=== PATIENT | male | born 1960 | race Hispanic/Latino ===

== ENCOUNTER 2025-08-02 08:37 | Day surgery (SDC) | payer OTHER ==
[2025-08-01 16:49] VITALS: BMI 24.0
[~2025-08-02 08:37] MED LIST: EPINEPHrine 0.3 MG in Ophthalmic Irrigation Solution 500 ML IRR SCH
[2025-08-02] MEDS ORDERED: Cyclopentolate 1% Opth Drop 2 ML BOT ONE (08:48)
[2025-08-02] MEDS ORDERED: Lidocaine 1% PF 5 ML VIAL ONE ×2 (10:04→11:20)
[2025-08-02] MEDS ORDERED: PROPOFOL 20 ML ONE (10:04)
[2025-08-02] MEDS ORDERED: Ondansetron PF 4 MG/2 ML Vial ONE (11:16)
[2025-08-02] MEDS ORDERED: GLYCOPYRROLATE/PF 0.2 MG/ML VIAL ONE (11:16)
[2025-08-02] MEDS ORDERED: CEFAZOLIN 1 GM VIAL ONE (11:20)
[2025-08-02] MEDS ORDERED: Maxitrol 0.1% Opth Oint 3.5 GM TUBE ONE (11:20)
[2025-08-02] MEDS ORDERED: Lidocaine 4% PF 5 ML AMP ONE (11:20)
[2025-08-02] MEDS ORDERED: PHENYLEPHRINE-NS 100 MCG/ML 10 ML SYRINGE ONE (11:37)
== END 2025-08-02 14:02 | disposition home or self-care (01) ==
LOC: SDC 08:37
PROVIDERS: ATTEND Ophthalmology Retina Specialist
PROC: 08RJ3JZ Replacement of Right Lens with Synthetic Substitute, Percutaneous Approach (ICD-10-PCS; principal; 2025-08-02)
PROC: 08PJ3JZ Removal of Synthetic Substitute from Right Lens, Percutaneous Approach (ICD-10-PCS; principal; 2025-08-02)
DX: T85.22XA Displacement of intraocular lens, initial encounter (principal); Z79.899 Other long term (current) drug therapy; Y83.1 Surgical operation with implant of artificial internal device as the cause of abnormal reaction of the patient, or of later complication, without mention of misadventure at the time of the procedure
CPT/HCPCS: J0166; J0690; J1100; J2704; J3301; J3490; V2632